=== PATIENT | female | born 2000 | race African-American/Black ===

== ENCOUNTER 2020-10-09 19:55 | Inpatient (IN) | payer OTHER, SELFPAY ==
[2020-10-09 20:22] VITALS: BMI 36.9
[2020-10-09] MEDS: risperiDONE 1 MG TABLET PO (23:16)
[2020-10-09] MEDS: traZODone HCL 50 MG TABLET PO (23:16)
[2020-10-09 23:24] LABS: Blood Urea Nitrogen 9 mg/dL (9-16); Creatinine Clr Calc Pharmacy 144.6; Estimated Glomerular Filt Rate > 60
[2020-10-10 06:00] VITALS: BP 118/58; PULSE 102; RESP 18; TEMP 37.2; O2SAT 94
[2020-10-10 08:29] LABS: Glucose, Whole Blood 113 mg/dL (60-115)
--- NOTE | 2020-10-10 08:58 | P.HPPS_ITS ---
HPI Chief Complaint: Unspecified Schizophrenia Sources of Information: patient interviewed, chart reviewed and crisis/core team assessment reviewed HPI Subjective Notes: Ayers Warning, Conditional Voluntary and 3 Day Narrative: Patient is a 20 year old transgender patient female to male who goes by the name of braden and has a history of schizoaffective disorder band PTSD, presenting for depression, SI and auditory hallucinations in the face of being off medications and having relational strife with her grandmother. Pt did not specify preference for pronouns but wants to be called Germán. Patient was transferred from [facility] after being treated there for a kidney stone which was without complications and has fully resolved. Patient reports that she was taking effective medications for mood and psychotic symptoms back in high school; when she was 18 she moved to [place] to live with her paternal grandmother and though she was taking medications there, does not remember which ones. Things did not go well in [place] and she moved back to [place] at 19. It was during the pandemic and it was hard to find a prescriber so she was off medications. For the past several months she has endorsed bothersome auditory hallucinations that say mean things, depression and anxiety; She reports chronic intermittent SI but says it is passive and without intent or plans. She is close to her maternal grandmother here in [place] however a few weeks ago her grandmother finally came to the realization that patient's transgender status is not a phase but permanent and made un-accepting comments to the patient. This was upsetting and significantly increased patients depressed feelings and subsequently suicidal ideations which remained passive but started to include some vague plans; She denies ever having any intention. Patient has undergone other stressors this past month which have exacerbated her symptoms and include moving into a new place by herself. patient had flank pain and was diagnosed and treated for kidney stone during which time she expressed she was having symptoms and so patient was started on Risperdal .5 twice today and transferred to [facility]. Patient currently endorses depression and has SI though she remains without intention or plans. Auditory hallucinations are still bothersome. She is fine with continuing on Risperdal if it is helpful as she cannot remember what meds she used to be on and [facility] does not have data going back far enough for ad copy writer to discover. Patient denies any drug use. Patient endorses history of trauma though she did not elaborate and reports frequent nightmares two to three times a week, flashbacks and hyper vigilance. Patient denies sexual activity and would like to get on hormone treatment to stop her. at [facility], pt was started on Metformin given HBA1c >6 Past Psychiatric History: treated for psychotic symptoms and mood since [facility] Medical Evaluation Reviewed: Hospitalist Roxie Pending [facility] Family History: no contact with bio father Social History: graduated [employer].S lives in own apartment close to maternal grandmother here in [place] not close to mother or siblings though they too live in [place] Substance History: denies Trauma History: +; pt did not elaborate Diagnostics Vital Signs (24Hr): Vital Signs - 24 hr 10/10/20 06:00 Temperature 99 F Pulse Rate 102 H Respiratory Rate 18 Blood Pressure 118/58 L Pulse Oximetry 94 Body Mass Index 36.9 Labs Results: 10/10/20 15:32 10/09/20 22:44 Labs: Laboratory Results - last 48 hr 10/09/20 10/10/20 22:44 08:25 BUN 9 Creatinine 0.73 Estim Creat Clear Calc 144.6 Estimated GFR > 60 POC Glucose 113 Meds/Allergies Meds Home Medications Acetaminophen (Acetaminophen 325 Mg Tablet) 650 mg PO Q6H PRN PRN Reason: Headache/Pain Mild Scale (1-3) Al Hydroxide/Mg Hydroxide (Magnesium Hydrox/Alum Hydrox 30 Ml Oral.Susp) 30 ml PO Q6H PRN PRN Reason: Heartburn/Nausea Albuterol Sulfate (Albuterol Sulfate 90 Mcg 8 Gm Inhaler) 2 puff INHALE RQ4H PRN PRN Reason: sob Albuterol Sulfate (Albuterol Sulfate (0.083%) 2.5 Mg/3 Ml Vial.Neb) 3 mg INHALE RQ4H PRN PRN Reason: sob/wheezing Hydroxyzine HCl (Hydroxyzine Hcl 25 Mg Tablet) 25 mg PO TID PRN PRN Reason: Anxiety Last Admin: 10/12/20 20:07 Dose: 25 mg Documented by: Magnesium Hydroxide (Milk Of Magnesia 30 Ml Oral.Susp) 30 ml PO DAILY PRN PRN Reason: Constipation Metformin HCl (Metformin Hcl 850 Mg Tablet) 850 mg PO DAILY@0800 FRANCISCO Last Admin: 10/13/20 08:54 Dose: 850 mg Documented by: Nicotine Polacrilex (Nicotine Polacrilex 2 Mg Gum) 4 mg BUCCAL Q2H PRN PRN Reason: Nicotine Cravings Risperidone (Risperidone 1 Mg Tablet) 1 mg PO DAILY [facility] Last Admin: 10/13/20 08:54 Dose: 1 mg Documented by: Risperidone (Risperidone 2 Mg Tablet) 2 mg PO BEDTIME FRANCISCO Last Admin: 10/12/20 20:07 Dose: 2 mg Documented by: Trazodone HCl (Trazodone Hcl 50 Mg Tablet) 50 mg PO BEDTIME PRN PRN Reason: Insomnia Last Admin: 10/12/20 22:32 Dose: 50 mg Documented by: Allergies Allergies Allergy/AdvReac Type Severity Reaction Status Date / Time No Known Allergies Allergy Verified 10/09/20 21:16 Mental Status Exam Mental Status Exam Narrative: Pt is alert and oriented; behavior is cooperative but struggles with reticence; patient is not in distress; dressed in hospital cloths with adequate hygiene; mood is described as depressed and affect congruent; eye contact appropriate; Initially Speech is very quiet and limited to as few words as possible however as patient became more comfortable, speech became normal rate, volume and prosody and not pressured; no psychomotor agitation/retardation present; thought process is organized, linear, logical and goal directed. Thought content is on getting treatment and otherwise pertinent to relevant topics and without any delusional content or paranoid ideations; pt has AH but has insight to know it's due to psychiatric illness and not real; no grandiosity; denies HI; SI is intermittent but passive. Patients insight and judgment appear intact. Assessment & Plan Assessment & Plan (1) Schizoaffective disorder, depressive type: Status: Acute Code(s): F25.1 - Schizoaffective disorder, depressive type (2) Chronic post-traumatic stress disorder (PTSD): Status: Acute Code(s): F43.12 - Post-traumatic stress disorder, chronic Assessment and Plan: impression Patient is a 20 year old transgender patient female to male who goes by the name of braden and has a history of schizoaffective disorder band PTSD, presenting for depression, SI and auditory hallucinations in the face of being off medications and having relational strife with her grandmother. Pt did not specify preference for pronouns but wants to be called Germán. Patient was t ransferred from [facility] after being treated there for a kidney stone which was without complications and has fully resolved. Pt currently with depression, passive SI and AH and wants to continue tx with Risperdal and agrees to increasing dose; ad copy writer reviewed risks/side-effects of this medication including galactorhea; pt understands risks/side-effect profile and agrees to continue with meds. Plan: increased Risperdal to 1mg BID (up from 0.5 mg bid started a week ago) Pt on CV q15 min checks recently treated for kidney stone which is now resolved; discussed case with covering attending at [facility] who says they will make appointments for follow up with urology Reason for continued inpatient stay Substantial Risk for: harm to self and med/psych decompensation
[2020-10-10] MEDS: risperiDONE 1 MG TABLET PO ×2 (09:17→20:32)
[2020-10-10] MEDS: metFORMIN HCl 850 MG TABLET PO (09:17)
[2020-10-10 15:40] LABS: Basophils Percent Auto 0.3 % (0-2); Eosinophils Absolute Auto 0.2 X10*3/uL (0.0-0.4); Eosinophils Percent Auto 1.3 % (0-4); Hematocrit 37.5 % (37-47); Hemoglobin 11.5 g/dl (12.0-16.0); Imm Gran Abs Auto 0.06 X10*3/uL (0.00-0.03); Imm Gran Pct Auto 0.4 % (0.0-0.4); Lymphocytes Absolute Auto 2.5 X10*3/uL (1.2-4.9); Lymphocytes Percent Auto 18.5 % (20-40); Mean Corpuscular HGB Conc 30.7 g/dl (31.0-35.0); Mean Corpuscular Hemoglobin 25.9 pg (27.0-33.0); Mean Corpuscular Volume 84.5 fL (80-98); Mean Platelet Volume 9.9 fL (9.4-12.3); Monocytes Absolute Auto 0.4 X10*3/uL (0.1-1.2); Neutrophils Absolute Auto 10.4 X10*3/uL (2.0-8.3); Neutrophils Percent Auto 76.5 % (45-73); Platelet Count 472 X10*3/uL (160-400); Red Blood Count 4.44 X10*6/uL (4.20-5.50); Red Cell Distribution Width 13.3 % (11.0-16.0); White Blood Count 13.5 X10*3/uL (4.8-10.8)
[2020-10-10 17:20] VITALS: BP 141/85; PULSE 100; TEMP 36.3; O2SAT 99
[2020-10-10 17:54] LABS: Glucose, Whole Blood 103 mg/dL (60-115)
[2020-10-10] MEDS: traZODone HCL 50 MG TABLET PO (22:28)
[2020-10-10] MEDS: hydrOXYzine HCL 25 MG TABLET PO (22:28)
[2020-10-11 06:30] VITALS: BP 127/67; PULSE 108; RESP 16; TEMP 36.6; O2SAT 96
[2020-10-11 06:42] LABS: Glucose, Whole Blood 132 mg/dL (60-115)
[2020-10-11] MEDS: metFORMIN HCl 850 MG TABLET PO (08:05)
[2020-10-11] MEDS: risperiDONE 1 MG TABLET PO ×2 (08:05→20:20)
--- NOTE | 2020-10-11 13:06 | PC.NURSE ---
pt signed 3 day up wed
[2020-10-11 17:15] VITALS: BP 133/72; PULSE 101; TEMP 36.5; O2SAT 99
--- NOTE | 2020-10-11 17:36 | HO.PSYCHPN ---
Subjective Subjective Date of Service: 10/12/20 Reason For Visit: Unspecified Schizophrenia Interim History: pt reports that she's feeling better. she says that her depression is still a 7/10 (down from 9/10 prior to admission) but her SI and AH are now at 5/10 (down from 8/10). and she's feeling more herself. Of note, pt is more spontaneously talkative and has brighter affect. She denies any med side-effects. of note, pt out in milue more. Medication Compliance: Yes Side effects from medications: No Mental Status Exam Mental Status Exam Narrative: Pt is alert and oriented; behavior is cooperative, friendly and calm; patient is not in distress; dressed in casual attire with adequate hygiene; mood is described as better and affect congruent; eye contact appropriate; Speech is normal rate, volume and prosody and not pressured; no psychomotor agitation/retardation present; thought process is organized, linear, logical and goal directed. Thought content is on treatment and pertinent to relevant topics; patient has AH but they are less intense; passive SI remains intermittent, but is w/out plans or intent; denies any HI. Patients insight and judgment appear intact. Diagnostics Vital Signs (24Hr): Vital Signs - 24 hr 10/11/20 06:30 Temperature 97.8 F Pulse Rate 108 H Respiratory Rate 16 Blood Pressure 127/67 Pulse Oximetry 96 Body Mass Index 36.9 Labs Results: 10/10/20 15:32 10/09/20 22:44 Labs: Laboratory Results - last 48 hr 10/09/20 10/10/20 10/10/20 22:44 08:25 15:32 WBC 13.5 H RBC 4.44 Hgb 11.5 L Hct 37.5 MCV 84.5 MCH 25.9 L MCHC 30.7 L RDW 13.3 Plt Count 472 H MPV 9.9 Immature Gran % (Auto) 0.4 Neut % (Auto) 76.5 H Lymph % (Auto) 18.5 L [place] % (Auto) 3.0 Eos % (Auto) 1.3 Baso % (Auto) 0.3 Lymph # (Auto) 2.5 [place] # (Auto) 0.4 Eos # (Auto) 0.2 Baso # (Auto) 0.0 Abs Immat Gran (auto) 0.06 H Absolute Neuts (auto) 10.4 H Absolute Nucleated RBC 0.000 Nucleated RBC % (auto) 0.0 BUN 9 Creatinine 0.73 Estim Creat Clear Calc 144.6 Estimated GFR > 60 POC Glucose 113 10/10/20 10/11/20 17:50 06:28 WBC RBC Hgb Hct MCV MCH MCHC RDW Plt Count MPV Immature Gran % (Auto) Neut % (Auto) Lymph % (Auto) [place] % (Auto) Eos % (Auto) Baso % (Auto) Lymph # (Auto) [place] # (Auto) Eos # (Auto) Baso # (Auto) Abs Immat Gran (auto) Absolute Neuts (auto) Absolute Nucleated RBC Nucleated RBC % (auto) BUN Creatinine Estim Creat Clear Calc Estimated GFR POC Glucose 103 132 H Medications Medications Current Medications Generic Name Dose Route Start Last Admin Trade Name Freq PRN Reason Stop Dose Admin Acetaminophen 650 mg 10/09/20 22:22 Acetaminophen 325 Mg Tablet PO Q6H PRN Headache/Pain Mild Scale (1-3) Al Hydroxide/Mg Hydroxide 30 ml 10/09/20 22:22 Magnesium Hydrox/Alum Hydrox 30 Ml Oral.Susp PO Q6H PRN Heartburn/Nausea Albuterol Sulfate 2 puff 10/09/20 22:22 Albuterol Sulfate 90 Mcg 8 Gm Inhaler INHALE RQ4H PRN sob Albuterol Sulfate 3 mg 10/09/20 22:22 Albuterol Sulfate (0.083%) 2.5 Mg/3 Ml Vial.Neb INHALE RQ4H PRN sob/wheezing Diphenhydramine HCl 50 mg 10/09/20 22:22 Diphenhydramine Hcl 25 Mg Tablet PO Q4H PRN agitation Haloperidol 5 mg 10/09/20 22:22 Haloperidol 5 Mg Tablet PO Q4H PRN agitation Hydroxyzine HCl 25 mg 10/09/20 23:00 10/10/20 22:28 Hydroxyzine Hcl 25 Mg Tablet PO 25 mg TID PRN Administration Anxiety Lorazepam 2 mg 10/09/20 22:22 Lorazepam 1 Mg Tablet PO Q4H PRN agitation Magnesium Hydroxide 30 ml 10/09/20 22:22 Milk Of Magnesia 30 Ml Oral.Susp PO DAILY PRN Constipation Metformin HCl 850 mg 10/10/20 08:00 10/11/20 08:05 Metformin Hcl 850 Mg Tablet PO 850 mg DAILY@0800 FRANCISCO Administration Nicotine Polacrilex 4 mg 10/09/20 22:22 Nicotine Polacrilex 2 Mg Gum BUCCAL Q2H PRN Nicotine Cravings Risperidone 1 mg 10/09/20 23:00 10/11/20 08:05 Risperidone 1 Mg Tablet PO 1 mg BID FRANCISCO Administration Trazodone HCl 50 mg 10/09/20 22:22 10/10/20 22:28 Trazodone Hcl 50 Mg Tablet PO 50 mg BEDTIME PRN Administration Insomnia Allergies Allergies Allergy/AdvReac Type Severity Reaction Status Date / Time No Known Allergies Allergy Verified 10/09/20 21:16 Assessment & Plan Assessment & Plan (1) Schizoaffective disorder, depressive type: Status: Acute Code(s): F25.1 - Schizoaffective disorder, depressive type (2) Chronic post-traumatic stress disorder (PTSD): Status: Acute Code(s): F43.12 - Post-traumatic stress disorder, chronic Impression: hx of schizophrenia increased risperdal dose on admission to good effect and pt's psychotic and depressive symptoms improving PLAN: Pt on CV continue Risperdal to 1mg BID (up from 0.5mg BID which was started last week) Greater than 50% of the session was spent on counseling and/or coordination of care Reason for contiued inpatient stay Substantial Risk for: rapid decompensation
[2020-10-11] MEDS: traZODone HCL 50 MG TABLET PO (20:20)
[2020-10-12 06:00] VITALS: BP 111/64; PULSE 102; RESP 18; TEMP 36.8; O2SAT 97
[2020-10-12 06:58] LABS: Glucose, Whole Blood 141 mg/dL (60-115)
[2020-10-12] MEDS: metFORMIN HCl 850 MG TABLET PO (08:50)
[2020-10-12] MEDS: risperiDONE 1 MG TABLET PO (08:50)
--- NOTE | 2020-10-12 15:26 | P.PNPSI_ITS ---
Subjective Subjective Date of Service: 10/12/20 Reason For Visit: Unspecified Schizophrenia Subjective Notes: 3 Day Interim History: Patient reports she is doing much better and feels ready to leave. She says she feels back to her normal self and that she is ?good... Ready to get out of here. ?She is patient says auditory hallucinations are way down and though present she is able to ignore. She says SI has fully resolved and so has depression. Patient's grandmother visited and although they did not fully reconcile, patient feels that they're getting there. ? She would like to go up 1 more mg 1 Risperdal to see if voices can be completely resolved. Denies any medication side effects Patient said she placed a 3 day notice anticipating she'd be back to her normal self Medication Compliance: Yes Side effects from medications: No Mental Status Exam Mental Status Exam Narrative: Pt is alert and oriented; behavior is cooperative, friendly and calm; patient is not in distress; dressed in casual attire with adequate hygiene; mood is described as good...ready to get out of here and affect congruent; eye contact appropriate; Speech is normal rate, volume and prosody and not pressured; no psychomotor agitation/retardation present; thought process is organized, linear, logical and goal directed. Thought content is on treatment and pertinent to relevant topics; patient has AH but they are minimal and able to be ignored; Denies any SI or HI. Patients insight and judgment appear intact. Diagnostics Vital Signs (24Hr): Vital Signs - 24 hr 10/11/20 17:15 10/12/20 06:00 Temperature 97.7 F 98.3 F Pulse Rate 101 H 102 H Respiratory Rate 18 Blood Pressure 133/72 111/64 Pulse Oximetry 99 97 Body Mass Index 36.9 Labs Results: 10/10/20 15:32 10/09/20 22:44 Labs: Laboratory Results - last 48 hr 10/10/20 10/10/20 10/11/20 15:32 17:50 06:28 WBC 13.5 H RBC 4.44 Hgb 11.5 L Hct 37.5 MCV 84.5 MCH 25.9 L MCHC 30.7 L RDW 13.3 Plt Count 472 H MPV 9.9 Immature Gran % (Auto) 0.4 Neut % (Auto) 76.5 H Lymph % (Auto) 18.5 L [place] % (Auto) 3.0 Eos % (Auto) 1.3 Baso % (Auto) 0.3 Lymph # (Auto) 2.5 [place] # (Auto) 0.4 Eos # (Auto) 0.2 Baso # (Auto) 0.0 Abs Immat Gran (auto) 0.06 H Absolute Neuts (auto) 10.4 H Absolute Nucleated RBC 0.000 Nucleated RBC % (auto) 0.0 POC Glucose 103 132 H 10/12/20 06:54 WBC RBC Hgb Hct MCV MCH MCHC RDW Plt Count MPV Immature Gran % (Auto) Neut % (Auto) Lymph % (Auto) [place] % (Auto) Eos % (Auto) Baso % (Auto) Lymph # (Auto) [place] # (Auto) Eos # (Auto) Baso # (Auto) Abs Immat Gran (auto) Absolute Neuts (auto) Absolute Nucleated RBC Nucleated RBC % (auto) POC Glucose 141 H Medications Medications Current Medications Generic Name Dose Route Start Last Admin Trade Name Freq PRN Reason Stop Dose Admin Acetaminophen 650 mg 10/09/20 22:22 Acetaminophen 325 Mg Tablet PO Q6H PRN Headache/Pain Mild Scale (1-3) Al Hydroxide/Mg Hydroxide 30 ml 10/09/20 22:22 Magnesium Hydrox/Alum Hydrox 30 Ml Oral.Susp PO Q6H PRN Heartburn/Nausea Albuterol Sulfate 2 puff 10/09/20 22:22 Albuterol Sulfate 90 Mcg 8 Gm Inhaler INHALE RQ4H PRN sob Albuterol Sulfate 3 mg 10/09/20 22:22 Albuterol Sulfate (0.083%) 2.5 Mg/3 Ml Vial.Neb INHALE RQ4H PRN sob/wheezing Diphenhydramine HCl 50 mg 10/09/20 22:22 Diphenhydramine Hcl 25 Mg Tablet PO Q4H PRN agitation Haloperidol 5 mg 10/09/20 22:22 Haloperidol 5 Mg Tablet PO Q4H PRN agitation Hydroxyzine HCl 25 mg 10/09/20 23:00 10/10/20 22:28 Hydroxyzine Hcl 25 Mg Tablet PO 25 mg TID PRN Administration Anxiety Lorazepam 2 mg 10/09/20 22:22 Lorazepam 1 Mg Tablet PO Q4H PRN agitation Magnesium Hydroxide 30 ml 10/09/20 22:22 Milk Of Magnesia 30 Ml Oral.Susp PO DAILY PRN Constipation Metformin HCl 850 mg 10/10/20 08:00 10/12/20 08:50 Metformin Hcl 850 Mg Tablet PO 850 mg DAILY@0800 FRANCISCO Administration Nicotine Polacrilex 4 mg 10/09/20 22:22 Nicotine Polacrilex 2 Mg Gum BUCCAL Q2H PRN Nicotine Cravings Risperidone 1 mg 10/09/20 23:00 10/12/20 08:50 Risperidone 1 Mg Tablet PO 1 mg BID FRANCISCO Administration Trazodone HCl 50 mg 10/09/20 22:22 10/11/20 20:20 Trazodone Hcl 50 Mg Tablet PO 50 mg BEDTIME PRN Administration Insomnia Allergies Allergies Allergy/AdvReac Type Severity Reaction Status Date / Time No Known Allergies Allergy Verified 10/09/20 21:16 Assessment & Plan Assessment & Plan (1) Schizoaffective disorder, depressive type: Status: Acute Code(s): F25.1 - Schizoaffective disorder, depressive type (2) Chronic post-traumatic stress disorder (PTSD): Status: Acute Code(s): F43.12 - Post-traumatic stress disorder, chronic Impression: hx of schizoaffective disorder, depressed type Diagnosis clarified: Patient has periods of auditory hallucinations even when depression is absent; otherwise has intermittent depressive episodes; denies history of manic episodes. Patient endorses history of trauma with nightmares 2-3 times per week, flashbacks to 3 times per week and hypervigilance. increased risperdal dose on admission to good effect and pt's psychotic and depressive symptoms improving Patient has been stabilizing on increased dose. However auditory hallucinations remain. Patient has recent history of suicidal ideation which has finally resolved. That said, patient is in a newly recovered state and with sports book writer is increasing Risperdal dose, it is sports book writer's opinion that patient should remain on unit for another day or so to demonstrate consistent stability and to make sure that increased Risperdal dose is tolerated PLAN: signed 3 day due on 10/13/20 increase Risperdal to 1mg in am and 2mg qhs for continued AH (up from 0.5mg BID which was started last week) Greater than 50% of the session was spent on counseling and/or coordination of care Reason for contiued inpatient stay Substantial Risk for: med/psych decompensation
[2020-10-12 16:58] LABS: Glucose, Whole Blood 125 mg/dL (60-115)
[2020-10-12] MEDS: hydrOXYzine HCL 25 MG TABLET PO (20:07)
[2020-10-12] MEDS: traZODone HCL 50 MG TABLET PO ×2 (20:07→22:32)
[2020-10-12] MEDS: risperiDONE 2 MG TABLET PO (20:07)
[2020-10-12 21:55] VITALS: BP 139/62; PULSE 120
[2020-10-12 23:31] VITALS: BP 140/67; PULSE 120
[2020-10-13 06:27] LABS: Glucose, Whole Blood 131 mg/dL (60-115)
[2020-10-13] MEDS: risperiDONE 1 MG TABLET PO (08:54)
[2020-10-13] MEDS: metFORMIN HCl 850 MG TABLET PO (08:54)
[2020-10-13 09:34] VITALS: BP 129/65; PULSE 120; RESP 20; TEMP 35.5; O2SAT 98
--- NOTE | 2020-10-13 16:01 | HO.PSYCHPN ---
Subjective Subjective Date of Service: 10/13/20 Reason For Visit: Unspecified Schizophrenia Interim History: pt reports she is planning to discharge tomorrow. she reports that the increase in risperidone dose yesterday has further improved the AH, but yet they persist. she declines any change in dosing today, however, liking where she has arrived. no other complaints or requests. Mental Status Exam Mental Status Exam Narrative: appropriately groomed, no PMA/PMR, cooperative. speech soft and decr in amount, incr latency. thoughts linear and logical without psychotic content. affect constricted, hypo-intense, non-labile. mood not assessed. improved AH. no VH, SI/HI expressed. Diagnostics Vital Signs (24Hr): Vital Signs - 24 hr 10/12/20 21:55 10/12/20 23:31 10/13/20 09:34 Temperature 96 F L Pulse Rate 120 H 120 H 120 H Respiratory Rate 20 Blood Pressure 139/62 140/67 H 129/65 Pulse Oximetry 98 Body Mass Index 36.9 Labs Results: 10/10/20 15:32 10/09/20 22:44 Labs: Laboratory Results - last 48 hr 10/12/20 10/12/20 10/13/20 06:54 16:54 06:22 POC Glucose 141 H 125 H 131 H Medications Medications Current Medications Generic Name Dose Route Start Last Admin Trade Name Ritoq PRN Reason Stop Dose Admin Acetaminophen 650 mg 10/09/20 22:22 Acetaminophen 325 Mg Tablet PO Q6H PRN Headache/Pain Mild Scale (1-3) Al Hydroxide/Mg Hydroxide 30 ml 10/09/20 22:22 Magnesium Hydrox/Alum Hydrox 30 Ml Oral.Susp PO Q6H PRN Heartburn/Nausea Albuterol Sulfate 2 puff 10/09/20 22:22 Albuterol Sulfate 90 Mcg 8 Gm Inhaler INHALE RQ4H PRN sob Albuterol Sulfate 3 mg 10/09/20 22:22 Albuterol Sulfate (0.083%) 2.5 Mg/3 Ml Vial.Neb INHALE RQ4H PRN sob/wheezing Hydroxyzine HCl 25 mg 10/09/20 23:00 10/12/20 20:07 Hydroxyzine Hcl 25 Mg Tablet PO 25 mg TID PRN Administration Anxiety Magnesium Hydroxide 30 ml 10/09/20 22:22 Milk Of Magnesia 30 Ml Oral.Susp PO DAILY PRN Constipation Metformin HCl 850 mg 10/10/20 08:00 10/13/20 08:54 Metformin Hcl 850 Mg Tablet PO 850 mg DAILY@0800 FRANCISCO Administration Nicotine Polacrilex 4 mg 10/09/20 22:22 Nicotine Polacrilex 2 Mg Gum BUCCAL Q2H PRN Nicotine Cravings Risperidone 1 mg 10/13/20 09:00 10/13/20 08:54 Risperidone 1 Mg Tablet PO 1 mg DAILY FRANCISCO Administration Risperidone 2 mg 10/12/20 21:00 10/12/20 20:07 Risperidone 2 Mg Tablet PO 2 mg BEDTIME FRANCISCO Administration Trazodone HCl 50 mg 10/09/20 22:22 10/12/20 22:32 Trazodone Hcl 50 Mg Tablet PO 50 mg BEDTIME PRN Administration Insomnia Allergies Allergies Allergy/AdvReac Type Severity Reaction Status Date / Time No Known Allergies Allergy Verified 10/09/20 21:16 Assessment & Plan Assessment & Plan (1) Schizoaffective disorder, depressive type: Status: Acute Code(s): F25.1 - Schizoaffective disorder, depressive type (2) Chronic post-traumatic stress disorder (PTSD): Status: Acute Code(s): F43.12 - Post-traumatic stress disorder, chronic Assessment and Plan: impression Patient is a 20 year old transgender patient female to male who goes by the name of braden and has a history of schizoaffective disorder and PTSD, presenting for depression, SI and auditory hallucinations in the face of being off medications and having relational strife with her grandmother. Pt did not specify preference for pronouns but wants to be called [facility]. Patient was transferred from [facility] after being treated there for a kidney stone which was without complications and has fully resolved. Pt currently with depression, passive SI and AH and wants to continue tx with Risperdal and agrees to increasing dose; senior grant writer reviewed risks/side-effects of this medication including galactorhea; pt understands risks/side-effect profile and agrees to continue with meds. Plan: increased Risperdal to 1mg BID (up from 0.5 mg bid started a week ago) Pt on CV q15 min checks recently treated for kidney stone which is now resolved; discussed case with covering attending at [facility] who says they will make appointments for follow up with urology content with current regimen, planning for discharge tomorrow. Greater than 50% of the session was spent on counseling and/or coordination of care Reason for contiued inpatient stay Substantial Risk for: med/psych decompensation
[2020-10-13 16:40] VITALS: BP 120/63; PULSE 119; TEMP 36.1
[2020-10-13 16:47] LABS: Glucose, Whole Blood 173 mg/dL (60-115)
[2020-10-13 20:44] VITALS: BP 132/77; PULSE 113
[2020-10-13] MEDS: hydrOXYzine HCL 25 MG TABLET PO (20:44)
[2020-10-13] MEDS: risperiDONE 2 MG TABLET PO (20:44)
[2020-10-13] MEDS: traZODone HCL 50 MG TABLET PO (20:44)
[2020-10-13] MEDS: cloNIDine HCL 0.1 MG TABLET 0.05 MG PO (20:44)
[2020-10-13 23:45] VITALS: BP 128/60; PULSE 107
[2020-10-14 06:00] VITALS: BP 114/63; PULSE 88; RESP 16; TEMP 36.2; O2SAT 100
[2020-10-14 06:06] LABS: Glucose, Whole Blood 154 mg/dL (60-115)
[2020-10-14] MEDS: risperiDONE 1 MG TABLET PO (08:36)
[2020-10-14] MEDS: metFORMIN HCl 850 MG TABLET PO (08:36)
--- NOTE | 2020-10-14 11:38 | PM.PSYDC ---
DS: Providers Provider Date of Service: 10/14/20 Date of admission: 10/09/20 19:55 Date of discharge: 10/14/20 Primary care physician: Unknown Physician Admitting clinician: Pawel Rubalcava Attending physician on discharge: Pawel Rubalcava DS: Diagnosis Discharge Diagnosis (1) Schizoaffective disorder, depressive type: Status: Acute (2) Chronic post-traumatic stress disorder (PTSD): Status: Acute Discharge Plan Discharge Patient Disposition: Home, Self-Care Discharge Diagnosis: Schizoaffective disorder, depressed type Referrals: Stacey (Therapist) [Other] - 10/15/20 1:00 pm (Telehealth appointment) Nury Foote (psychiatrist) [Other] - 10/19/20 1:00 pm (Telehealth appointment) Hasmukh Merchant MD [Physician] - 10/19/20 11:00 am (Appt. changed to Monday10/19/20 @11am with (in person). Due to her already having an appt. on the 20 of October.) Physician,Unknown [Primary Care Provider] - 1 Week Discharge Medications: New albuterol sulfate 2.5 mg /3 mL (0.083 %) Solution For Nebulization 3 mg inhalation RQ4H PRN (Reason: sob/wheezing) 30 Days Qty: 15 RF: 0 trazodone 50 mg Tablet 50 mg PO BEDTIME PRN (Reason: Insomnia) 30 Days Qty: 30 RF: 0 metformin 850 mg Tablet 850 mg PO DAILY@0800 30 Days Qty: 30 RF: 0 risperidone 2 mg Tablet 2 mg PO BEDTIME 30 Days Qty: 30 RF: 0 albuterol sulfate [Ventolin HFA] 90 mcg/actuation Hfa Aerosol Inhaler 2 puff inhalation RQ4H PRN (Reason: sob) 30 Days Qty: 1 RF: 0 risperidone 1 mg Tablet 1 mg PO DAILY 30 Days Qty: 30 RF: 0 hydroxyzine HCl 25 mg Tablet 25 mg PO TID PRN (Reason: Anxiety) 30 Days Qty: 60 RF: 0 Discharge Orders: Discharge Order (Routine); Ordered 10/14/20 Ordered By: Pawel Rubalcava Diet: diabetic diet Activity on Discharge: As tolerated Stand Alone Forms: Patient Portal Discharge page, Community Support Care Plan Goals: Maintain mood and safe behaviors Take medications as prescribed Practice coping skills Continue with outpatient providers and reach out to them as needed Health Concerns: Mood instability and behaviors Depression Elevated HBA1C and Diabetes Plan of Treatment: Follow up with your PCP and psychiatric provider regarding above concerns Take medications as prescribed Assessment: Risk assessment at time of discharge: Patient has been observed closely by nursing and unit staff throughout admission; patient has not engaged in any behaviors that suggest dangerousness to self or others and has demonstrated appropriate behaviors and impulse control. Patient was interviewed prior to discharge and found to be fully oriented and without any SI or HI. Patient has insight and demonstrates good judgment in terms of wanting to pursue treatment. Patient is not in imminent risk of harm to self or others and has a safety plan that includes presenting to the closest ER or calling 911 if feeling unsafe. Mental Status Exam Mental Status Exam Narrative: Pt is alert and oriented; behavior is cooperative, friendly and calm; patient is not in distress; dressed in casual attire with adequate hygiene; mood is described as good...almost good and affect bright, congruent; eye contact appropriate; Speech is normal rate, volume and prosody and not pressured; no psychomotor agitation/retardation present; thought process is organized, linear, logical and goal directed. Thought content is on treatment, discharge and pertinent to relevant topics; patient has AH but they are minimal and able to be ignored; Denies any SI or HI. Patients insight and judgment appear intact. Data Data Completed and Pending Completed studies during hospitalization [Text1]: 10/09/20 10/10/20 10/10/20 22:44 08:25 15:32 WBC 13.5 H RBC 4.44 Hgb 11.5 L Hct 37.5 MCV 84.5 MCH 25.9 L MCHC 30.7 L RDW 13.3 Plt Count 472 H MPV 9.9 Immature Gran % (Auto) 0.4 Neut % (Auto) 76.5 H Lymph % (Auto) 18.5 L Sharkey % (Auto) 3.0 Eos % (Auto) 1.3 Baso % (Auto) 0.3 Lymph # (Auto) 2.5 Sharkey # (Auto) 0.4 Eos # (Auto) 0.2 Baso # (Auto) 0.0 Abs Immat Gran (auto) 0.06 H Absolute Neuts (auto) 10.4 H Absolute Nucleated RBC 0.000 Nucleated RBC % (auto) 0.0 BUN 9 Creatinine 0.73 Estim Creat Clear Calc 144.6 Estimated GFR > 60 POC Glucose 113 10/10/20 10/11/20 10/12/20 17:50 06:28 06:54 WBC RBC Hgb Hct MCV MCH MCHC RDW Plt Count MPV Immature Gran % (Auto) Neut % (Auto) Lymph % (Auto) Sharkey % (Auto) Eos % (Auto) Baso % (Auto) Lymph # (Auto) Sharkey # (Auto) Eos # (Auto) Baso # (Auto) Abs Immat Gran (auto) Absolute Neuts (auto) Absolute Nucleated RBC Nucleated RBC % (auto) BUN Creatinine Estim Creat Clear Calc Estimated GFR POC Glucose 103 132 H 141 H 10/12/20 10/13/20 10/13/20 16:54 06:22 16:40 WBC RBC Hgb Hct MCV MCH MCHC RDW Plt Count MPV Immature Gran % (Auto) Neut % (Auto) Lymph % (Auto) Sharkey % (Auto) Eos % (Auto) Baso % (Auto) Lymph # (Auto) Sharkey # (Auto) Eos # (Auto) Baso # (Auto) Abs Immat Gran (auto) Absolute Neuts (auto) Absolute Nucleated RBC Nucleated RBC % (auto) BUN Creatinine Estim Creat Clear Calc Estimated GFR POC Glucose 125 H 131 H 173 H 10/14/20 05:58 WBC RBC Hgb Hct MCV MCH MCHC RDW Plt Count MPV Immature Gran % (Auto) Neut % (Auto) Lymph % (Auto) Sharkey % (Auto) Eos % (Auto) Baso % (Auto) Lymph # (Auto) Sharkey # (Auto) Eos # (Auto) Baso # (Auto) Abs Immat Gran (auto) Absolute Neuts (auto) Absolute Nucleated RBC Nucleated RBC % (auto) BUN Creatinine Estim Creat Clear Calc Estimated GFR POC Glucose 154 H DS: Summary Hospital Course Hospital Course: Patient is a 20 year old transgender patient female to male who goes by the name of braden and has a history of schizoaffective disorder and PTSD, presenting for depression, SI and auditory hallucinations in the face of being off medications and having relational strife with her grandmother. Patient was transferred from [facility] after being treated there for a kidney stone which was without complications and has fully resolved. She was admitted on a CV. On admission, pt reported depression with passive SI and AH and agreed to continue tx with Risperdal and to increasing dose. Soon, patient reported that depression, SI and auditory hallucinations were decreasing. She became more outwardly social and with brighter affect. Patient agreed to increased Risperdal dose for continued auditory hallucinations and denied any side effects. Patient placed a 3 day Saint she felt good and was ready to get out of here. Patient continued to deny any suicidal or homicidal ideation and demonstrated appropriate behaviors and impulse control on the unit. Patient reconciled with her grandmother and was optimistic about the relationship going forward. As discharge approached and on the day of discharge patient reported that all depression had resolved and that she was in a good mood. She denied any SI or HI and reported that auditory hallucinations were very minimal and able to be ignored. The patient also reported that PTSD symptoms had decreased and planned to follow-up with outpatient provider for further treatment. Her affect was noticeably brighter and patient was future focused. Her 3 day notice was due and as she was not in imminent risk for harm to self or others and her request for discharge honored. Fretted Instrument Maker Hand discussed risks/side effects of medication regimen, including but not limited to galachtorhea and TD; patient communicated understanding of benefits, risks and side-effects of medications and wants to continue with regimen. Patient agrees that current doses seem appropriate and denies medication side-effects. Patient agrees to reach out to outpatient provider with any medications concerns. Status at Discharge Cognitive/behavioral status at discharge: Risk assessment at time of discharge: Patient has been observed closely by nursing and unit staff throughout admission; patient has not engaged in any behaviors that suggest dangerousness to self or others and has demonstrated appropriate behaviors and impulse control. Patient was interviewed prior to discharge and found to be fully oriented and without any SI or HI. Patient has insight and demonstrates good judgment in terms of wanting to pursue treatment. Patient is not in imminent risk of harm to self or others and has a safety plan that includes presenting to the closest ER or calling 911 if feeling unsafe. Functional status at discharge: independent ambulation Overall status at discharge: patient is back to baseline Time Spent with Patient Time attestation: Total time spent providing and/or coordinating discharge services: Time spent: Greater than 30 minutes
== END 2020-10-14 13:00 | disposition home or self-care (01) | DRG 750 ==
PROVIDERS: Admitting Provider Psychiatry & Neurology Psychiatry; Visit Provider Psychiatry & Neurology Psychiatry
DX: F25.1 Schizoaffective disorder, depressive type (principal); R45.851 Suicidal ideations; F64.0 Transsexualism; F43.12 Post-traumatic stress disorder, chronic; Z79.899 Other long term (current) drug therapy
CPT/HCPCS: 36415; 82565; 82947; 84520; 85025

== ENCOUNTER 2021-04-21 13:46 | Outpatient (REF) | payer MEDICAID, SELFPAY ==
--- NOTE | ~2021-04-21 | US_ITS ---
EXAMINATION: US PELVIS CLINICAL INFORMATION: Abnormal uterine bleeding COMPARISON: None TECHNIQUE: Ultrasound of the pelvis is performed using both transabdominal and transvaginal transducers along with Doppler. Transvaginal imaging is performed due to inadequate visualization transabdominally. FINDINGS: Uterus: The uterus is anteverted and measures 6 x 3.2 x 4.3 cm. It is anteverted. No myometrial lesion. Probable arcuate morphology. The double wall endometrial thickness is 0.6 mm. The uterus is smooth in contour and has normal myometrial echogenicity. No visible fibroid. Adnexa: Both ovaries are visualized. There is normal color flow to the adnexa. There is no ovarian torsion. There is no pelvic ascites or fluid collection. Both ovaries are normal measuring 14 mL in volume on the right and 7 6 left. US/US pelvic and transvaginal IMPRESSION: Essentially normal exam.
== END 2021-04-21 13:47 | disposition home or self-care (01) ==
LOC: HO.HMGCX 13:46
PROVIDERS: Absent Provider Internal Medicine; PCP Internal Medicine; Visit Provider Family Medicine
DX: N93.9 Abnormal uterine and vaginal bleeding, unspecified (principal)
CPT/HCPCS: 76830; 76856

== ENCOUNTER 2022-12-15 14:09 | Outpatient (REF) | payer MEDICAID, SELFPAY ==
[2022-12-15 17:21] LABS: MANUAL DIFF FLAG NO
[2022-12-15 17:36] LABS: Basophils Percent Auto 0.3 % (0-2); Eosinophils Absolute Auto 0.1 X10*3/uL (0.0-0.4); Eosinophils Percent Auto 0.4 % (0-4); Hematocrit 45.1 % (37.0-47.0); Hemoglobin 13.9 g/dl (12.0-16.0); Imm Gran Abs Auto 0.04 X10*3/uL (0.00-0.03); Imm Gran Pct Auto 0.3 % (0.0-0.4); Lymphocytes Absolute Auto 3.7 X10*3/uL (1.2-4.9); Lymphocytes Percent Auto 28.3 % (20-40); Mean Corpuscular HGB Conc 30.8 g/dl (31.0-35.0); Mean Corpuscular Hemoglobin 26.1 pg (27.0-33.0); Mean Corpuscular Volume 84.6 fL (80.0-98.0); Mean Platelet Volume 10.8 fL (9.4-12.3); Monocytes Absolute Auto 0.7 X10*3/uL (0.1-1.2); Neutrophils Absolute Auto 8.5 x10*3/uL (2.0-8.3); Neutrophils Percent Auto 65.7 % (45-73); Platelet Count 518 X10*3/uL (160-400); Red Blood Count 5.33 X10*6/uL (4.20-5.50); Red Cell Distribution Width 12.6 % (11.0-16.0); White Blood Count 12.9 X10*3/uL (4.8-10.8)
[2022-12-15 17:51] LABS: Alanine Aminotransferase 44 U/L (0-31); Albumin Level 4.6 g/dL (3.5-5.0); Alkaline Phosphatase 111 U/L (39-117); Anion Gap 15 (12-20); Aspartate Amino Transferase 36 U/L (5-31); Bilirubin Direct 0.2 mg/dL (0.0-0.5); Bilirubin Total 0.5 mg/dL (0.0-1.0); Blood Urea Nitrogen 7 mg/dL (9-16); Calcium 10.9 mg/dL (8.4-10.2); Carbon Dioxide 25 mmol/L (22-29); Chloride 103 mmol/L (96-108); Cholesterol 220 mg/dL; Estimated Glomerular Filt Rate > 60; Glucose Random 224 mg/dL (60-115); HDL Cholesterol 45 mg/dL; LDL Cholesterol Calculated 135 mg/dl; Sodium 139 mmol/L (135-145); Total Protein 8.6 g/dL (6.5-8.0); Triglycerides 201 mg/dL
== END 2022-12-15 14:10 | disposition home or self-care (01) ==
LOC: HO.CHCLDS 14:09
PROVIDERS: Visit Provider Internal Medicine
DX: Z00.00 Encounter for general adult medical examination without abnormal findings (principal); E11.65 Type 2 diabetes mellitus with hyperglycemia
CPT/HCPCS: 36415; 80048; 80061; 80076; 85025

== ENCOUNTER 2024-05-30 11:05 | Outpatient (REF) | payer MEDICAID, SELFPAY ==
[2024-05-30 14:01] LABS: MANUAL DIFF FLAG NO
[2024-05-30 14:20] LABS: Basophils Absolute Auto 0.1 X10*3/uL (0.0-0.2); Basophils Percent Auto 0.4 % (0-2); Eosinophils Absolute Auto 0.1 X10*3/uL (0.0-0.4); Eosinophils Percent Auto 0.7 % (0-4); Hematocrit 37.9 % (37.0-47.0); Hemoglobin 11.6 g/dl (12.0-16.0); Imm Gran Abs Auto 0.06 X10*3/uL (0.00-0.03); Imm Gran Pct Auto 0.4 % (0.0-0.4); Lymphocytes Absolute Auto 2.8 X10*3/uL (1.2-4.9); Lymphocytes Percent Auto 19.3 % (20-40); Mean Corpuscular HGB Conc 30.6 g/dl (31.0-35.0); Mean Corpuscular Hemoglobin 24.8 pg (27.0-33.0); Mean Platelet Volume 10.6 fL (9.4-12.3); Monocytes Absolute Auto 0.7 X10*3/uL (0.1-1.2); Neutrophils Absolute Auto 10.9 x10*3/uL (2.0-8.3); Neutrophils Percent Auto 74.2 % (45-73); Platelet Count 540 X10*3/uL (160-400); Red Blood Count 4.68 X10*6/uL (4.20-5.50); Red Cell Distribution Width 13.9 % (11.0-16.0); White Blood Count 14.7 X10*3/uL (4.8-10.8)
[2024-05-30 14:39] LABS: Alanine Aminotransferase 22 U/L (0-31); Albumin Level 4.1 g/dL (3.5-5.0); Alkaline Phosphatase 88 U/L (39-117); Anion Gap 12 (12-20); Aspartate Amino Transferase 25 U/L (5-31); Bilirubin Total 0.3 mg/dL (0.0-1.0); Blood Urea Nitrogen 7 mg/dL (9-16); Calcium 9.8 mg/dL (8.4-10.2); Carbon Dioxide 27 mmol/L (22-29); Chloride 103 mmol/L (96-108); Cholesterol 217 mg/dL (<200); Estimated Glomerular Filt Rate > 60; Glucose Random 173 mg/dL (60-115); HDL Cholesterol 43 mg/dL (>40); LDL Cholesterol Calculated 112 mg/dL (<100); Potassium 4.1 mmol/L (3.3-5.1); Sodium 138 mmol/L (135-145); Total Protein 8.3 g/dL (6.5-8.0); Triglycerides 313 mg/dL (<150)
[2024-05-30 14:53] LABS: TSH reflex Free T4 1.46 uIU/mL (0.32-4.0)
--- OUTSIDE RECORDS SUMMARY | 2024-05-30 14:58 | XMS_ITS | Encounter Summary ---
Author Organization [facility] [employer] Address [address] [place] [address] Care Team Providers Care Farm Crops Teacher Name Role Phone Hasmukh Merchant MD Primary Care Provider [phone] Reason for Visit * Reason Onset Date Comments Nurse Triage 03/11/2024 Encounter Details Date Type Department Care Team (Late st Contact Info) Description 03/11/[address] [facility] [address] [place] [address] Hasmukh Merchant MD [address] [place], [place] [id number] Nurse Triage Social History Tobacco Use Types Packs/Day Years Used Date Smoking Tobacco: Never Comments Unknown Sex and Gender Information Value Date Recorded Sex Assigned at Female 02/28/2022 10:37 AM EDT Legal Sex Female 10:37 AM EDT Gender Identity Choose not to disclose 10:37 AM EDT Sexual Orientation Choose not to disclose 2023 12:33 PM EST Sexual Orientation Asexual 05/25/2023 12 :33 PM EST Sexual Orientation Bisexual 05/25/2023 12 :33 PM EST documented as of this encounter Miscellaneous Notes * Telephone Encounter - Veda Pang RN - 03/11/2024 3:36 PM EST Triage call Pt is autistic and Grandmother is caring for Pt and is right by Pt. Pt has been having pain on left side of face to jaw. Possible earache, no drainage, ear is not blocked. Pt has some swollen glands under jaw left side of face. Pt reports it hurts to swallow. Neg for cough. Neg for fever. Pt is drinking liquids well and eating though reports pain with swallowing. Pt is given tylenol for pain and advil PM at bed time for discomfort. Pt is advised to drink warm liquids, decaff tea with some honey. 1-2 tsp of honey for sore throat. Pt is offered to come to [facility] tonight open till 8pm , no apts available in [facility] today or tomorrow. Grandmother will bring Pt in morning to [facility] , address given [address] [place] [address] [address]. Open 830am - 800pm 03/12/24 also. Grandmother agrees with disposition. home care reviewed. Insurance is verified as active. Protocol Used: Earache (Adult) Protocol-Based Disposition: See in Office or Video Visit Today or Tomorrow Positive Triage Questions: * All other earaches (Exceptions: Brief ear pain lasting < 1 hour, and earache occurring during air travel.) * Patient wants to be seen * All higher-acuity triage questions were negative Care Advice Discussed: * Reassurance and Education - Earache * Pain Medicines * Pain Medicines - Extra Notes and Warnings * Cold or Heat Pack for Ear Pain * Ear Discharge * Reasons To Call Back - Severe pain lasts over 2 hours after pain medicine - You become worse * Telephone Encounter - Rosalina Negrete - 03/11/2024 3:15 PM EST Symptom: Earache Outcome: Schedule an urgent appointment (within 1 hour) or talk to a nurse or provider soon Reason: Severe pain now The caller accepted this outcome. documented in this encounter Plan of Treatment Upcoming Encounters Date Type Department Care Team ([facility] st Contact Info) Description 08/28/2024 9:45 AM EDT Office Visit [facility] [address] [place] [address] Hasmukh Merchant MD [address] [place] [address] documented as of this encounter Visit Diagnoses Not on filedocumented in this encounter Care Teams Farm Crops Teacher Relationship Specialty Start Date End Date Hasmukh Merchant MD [address] [place] [address] PCP - General Internal Medicine 10/12/20 documented as of this encounter
--- OUTSIDE RECORDS SUMMARY | 2024-05-30 14:58 | XMS_ITS | Encounter Summary ---
Author Organization [employer] Address [address] [place] [address] Care Team Providers Care Clothing And Textiles Teacher Name Role Phone Hasmukh Merchant MD Primary Care Provider [phone] Encounter Details Date Type Department Care Team (Latest Contact Info) Description 05/30/2024 Travel Social History Tobacco Use Types Packs/Day Years Used Date Smoking Tobacco: Never Depression Answer Date Recorded Patient Health Questionnaire-9 Score 22 05/30/2024 Patient Health Questionnaire-9 Score 22 05/30/2024 Last PHQ-9: Questionnaire Data Not on file 0 05/30/2024 Housing Stability Answer Date Recorded What is your housing situation today? I have [place] [facility]mahon 05/30/[address] you li ve. Do you have problems with any of the following? None of the above 05/30/2024 Food Insecurity Answer Date Recorded Within the past 12 months, y ou worried that your food would run out before you got money to buy more: Never True 05/30/2024 Within the past 12 months,th e food you bought just didn't last and you didn't have enough money to get more: Never True Utilities Answer Date Recorded In the past 12 months, has t he electric, gas, oil or water company threatened to shut off services in your home? No 05/30/2024 Depression Answer Date Recorded Patient Health Questionnaire-2 Score 6 05/30/2024 Internet Access Answer Date Recorded Internet Access Q1 Yes 05/30/2024 Internet Access Q2 Not on file 05/30/2024 Comments Unknown Sex and Gender Information Value Date Recorded Sex Assigned at Female 02/28/2022 10:37 AM EDT Legal Sex Female 10:37 AM EDT Gender Identity Choose not to disclose 10:37 AM EDT Sexual Orientation Choose not to disclose 2023 12:33 PM EST Sexual Orientation Asexual 05/25/2023 12 :33 PM EST Sexual Orientation Bisexual 05/25/2023 12 :33 PM EST documented as of this encounter Plan of Treatment Upcoming Encounters Date Type Department Care Team ([facility] st Contact Info) Description 08/28/2024 9:45 AM EDT Office Visit [facility] MED & PEDS [address] [place] [address] Hasmukh Merchant MD [address] [place] [address] documented as of this encounter Visit Diagnoses Not on filedocumented in this encounter Additional Health Concerns Assessment Noted Time PHQ-9 Depression Total Score: 22 025 11:24 AM EST documented as of this encounter Care Teams Clothing And Textiles Teacher Relationship Specialty Start Date End Date Hasmukh Merchant MD [address] [place] [address] PCP - General Internal Medicine 10/12/20 documented as of this encounter
--- OUTSIDE RECORDS SUMMARY | 2024-05-30 14:58 | XMS_ITS | Encounter Summary ---
Author Organization [employer] Address [address] [facility] 7 [place] [address] Care Team Providers Care Emergency Veterinary Assistant Name Role Phone Hasmukh Merchant MD Primary Care Provider [phone] Reason for Referral * Consultation (Routine) - Authorized Specialty Diagnoses / Procedures Referred By Harris zee Referred To Contact Pharmacy Diagnoses Type 2 diabetes mellitus with hyperglycemia, without long-term current use of insulin ([facility]) Hasmukh Merchant MD [address] [place] [address] Phone: tel: fax: Referral ID Status Reason Start Date Expiration Date Visits Requested Visits Authorized [id number] Authorized Consult and Treat 05/30/2024 05/30/2025 6 6 * Consultation (Routine) - Pending Review Specialty Diagnoses / Procedures Referred By Harris zee Referred To Contact Podiatry Diagnoses Nail disorder (onychogryphosis) Hasmukh Merchant MD [address] [place] [address] Phone: tel: fax: Referral ID Status Reason Start Date Expiration Date Visits Requested Visits Authorized [id number] Pending Review Specialty Services Required 05/30/2024 05/30/2025 1 1 * Consultation (Routine) - Authorized Specialty Diagnoses / Procedures Referred By Contac t Referred To Contact Optometry Diagnoses Type 2 diabetes mellitus with hyperglycemia, without long-term current use of insulin (CMS/HCC) Hasmukh Merchant MD [address] [place] [address] Phone: tel: fax: [facility] OPTOMETRY [address] [place] [address] Phone: tel: fax: Referral ID Status Reason Start Date Expiration Date Visits Requested Visits Authorized [id number] Authorized Consult and Treat 05/30/2024 05/30/2025 1 1 Reason for Visit * Reason Comments Diabetes Encounter Details Date Type Department Care Team (Late st Contact Info) Description 05/30/2024 10:30 AM EST Office Visit [facility] [address] [place] [phone] Hasmukh Merchant MD [address] [place] [phone] Type 2 diabetes mellitus with hyperglycemia, without long-term current use of insulin (CMS/HCC) (Primary Dx); Type 2 diabetes mellitus with hyperglycemia, without long-term current use of insulin (CMS/HCC); Nail disorder (onychogryphosis); Vitamin D deficiency; Dietary counseling; Exercise counseling; Class 2 severe obesity due to excess calories with serious comorbidity and body mass index (BMI) of 36.0 to 36.9 in adult (CMS/HCC); Speech delay; Reactive depression Social History Tobacco Use Types Packs/Day Years [...] PM EST documented as of this encounter Last Filed Vital Signs Vital Sign Reading Time Taken Comments Blood Pressure 128/80 05/30/2024 10:35 AM EST Pulse 84 05/30/2024 10:35 AM EST Temperature 36.6 ??C (97.8 ??F) 05/30/2024 1 0:35 AM EST Respiratory Rate 20 05/30/2024 10:3 5 AM EST Oxygen Saturation 98% 05/30/2024 10: 35 AM EST Inhaled Oxygen Concentration - - Weight 99.7 kg (219 lb 12.8 oz) 025 10:35 AM EST Height 165.1 cm (5' 5 ) 05/30/2024 10:3 5 AM EST Body Mass Index 36.58 05/30/2024 10:35 AM EST documented in this encounter Progress Notes * Hasmukh Merchant MD - 05/30/2024 10:30 AM EST Subjective Patient ID: Pina Ramos is a 24 y.o. adult who presents for No chief complaint on file.. Diabetes Pina presents for Pina's follow-up diabetic visit. Pina has type 2 diabetes mellitus. Pertinent negatives for diabetes include no blurred vision, no chest pain, no fatigue, no foot paresthesias, no foot ulcerations, no polydipsia, no polyphagia, no polyuria, no visual change, no weakness and no weight loss. No reported acute events since the last office visit. Patient is a noncompliant to medication for unclear reason. Would like to get a referral to podiatry and ophthalmology. Came to the appointment with Mrs. Gonzalez the grandmother. Patient Active Problem List Diagnosis Asthma Diabetes mellitus ([facility]) H/O: attempted suicide Depression Speech delay Current Outpatient Medications on File Prior to Visit Medication Sig Dispense Refill albuterol 108 (90 Base) MCG/ACT inhaler Inhale 2 puffs every 4 (four) hours if needed for wheezing.18 g 0 metFORMIN (Glucophage) 500 MG tablet TAKE 1 TABLET BY MOUTH TWICE DAILY WITH MORNING AND EVENING MEALS 180 tablet 1 [DISCONTINUED] cholecalciferol (Vitamin D-3) 50 MCG (1999 UT) capsule Take 1 capsule (50 mcg) by mouth in the morning. 90 capsule 3 [DISCONTINUED] empagliflozin (Jardiance) 10 MG Take 1 tablet (10 mg) by mouth Once per day. 30 tablet 11 No current facility-administered medications on file prior to visit. Allergies Allergen Reactions Seasonal Ic [Octacosanol] Review of Systems Constitutional: Negative for activity change, appetite change, chills, fatigue and weight loss. HENT: Positive for ear discharge. Eyes: Negative for blurred vision, pain and itching. Cardiovascular: Negative for chest pain. Endocrine: Negative for polydipsia, polyphagia and polyuria. Musculoskeletal: Negative for arthralgias, back pain, gait problem and joint swelling. Neurological: Negative for weakness. Objective BP 128/80 (BP Location: Right arm, Patient Position: Sitting, BP Cuff Size: Large adult) Pulse 84 Temp 97.8 ??F (36.6 ??C) (Oral) Resp 20 Ht 5' 5 (1.651 m) Wt 219 lb 12.8 oz (99.7 kg) SpO2 98% BMI 36.58 kg/m?? Physical Exam Constitutional: General: Pina is not in acute distress. Appearance: Normal appearance. Pina is obese. Pina is not ill-appearing or diaphoretic. Cardiovascular: Rate and Rhythm: Normal rate. Pulmonary: Effort: Pulmonary effort is normal. Neurological: General: No focal deficit present. Mental Status: Pina is alert. Psychiatric: Mood and Affect: Affect is flat. Speech: Speech is delayed. Assessment/Plan Diagnoses and all orders for this visit: Type 2 diabetes mellitus with hyperglycemia, without long-term current use of insulin ([facility]) Comments: Uncontrolled Start Jardiance 10 mg Follow-up in 3 months Orders: - POCT Glucose - POCT HGB A1C - empagliflozin (Jardiance) 10 MG; Take 1 tablet (10 mg) by mouth Once per day. - Referral to [facility]; Future - CBC auto differential; Future - Comprehensive Metabolic Panel; Future - Lipid Panel, Standard; Future - TSH W/Reflex to FT4; Future - Referral to Pharmacy [facility] Type 2 diabetes mellitus with hyperglycemia, without long-term current use of insulin ([facility]) Comments: uncontrolled Does not tolerate Metformin. jardiance will be started. Orders: - POCT Glucose - POCT HGB A1C - empagliflozin (Jardiance) 10 MG; Take 1 tablet (10 mg) by mouth Once per day. - Referral to [facility]; Future - CBC auto differential; Future - Comprehensive Metabolic Panel; Future - Lipid Panel, Standard; Future - TSH W/Reflex to FT4; Future - Referral to Pharmacy [facility] Nail disorder (onychogryphosis) - Referral to Podiatry; Future Vitamin D deficiency Comments: Continue with vitamin D supplementation. Orders: - cholecalciferol (Vitamin D-3) 50 MCG (2000 UT) capsule; Take 1 capsule (50 mcg) by mouth Once per day. Dietary counseling Exercise counseling Class 2 severe obesity due to excess calories with serious comorbidity and body mass index (BMI) of36.0 to 36.9 in adult ([facility]) Discussed calorie deficit, recommended reduction of 20-30% of maintenance calories; fiberglass autobody repairer referral offered. Recommended to decrease soda and sugary beverage consumption. Recommended at least 20 g per meal of protein to assist with satiety. Recommended at least 150 min/week of moderate intensity exercise. Speech delay Patient declines help. Reactive depression Comments: Patient is not interested in getting help from behavioral. Patient and grandmother made aware to contact the office if there is any change. documented in this encounter Plan of Treatment Upcoming Encounters Date Type Department Care Team (Late st Contact Info) Description 08/28/2024 9:45 AM EDT Office Visit [facility] [address] [place] [address] Hasmukh Merchant MD [address] [place] [address] Scheduled Referrals Name Type Priority Associated Diagnoses Orde r Schedule Referral to [facility] Outpatient Referral Routine Type 2 diabetes mellitus with hyperglycemia, without long-term current use of insulin ([facility]) Expected: 05/30/2024 (Approximate), Expires: 05/30/2025 Referral to Podiatry Outpatient Referral Routine Nail disorder (onychogryphosis) Expected: 05/30/2024 (Approximate), Expires: 05/30/2025 Referral to Pharmacy [facility] Outpatient Referral Routine Type 2 diabetes mellitus with hyperglycemia, without long-term current use of insulin (CMS/HCC) Ordered: 05/30/2024 documented as of this encounter Procedures Procedure Name Priority Date/Time Associated Diagnosis Comments POCT GLYCATED HEMOGLOBIN, TOTAL Routine 05/30/2024 11:32 AM EST Type 2 diabetes mellitus with hyperglycemia, without long-term current use of insulin ([facility]) POCT GLUCOSE Routine 05/30/2024 11:30 AM EST Type 2 diabetes mellitus with hyperglycemia, without long-term current use of insulin ([facility]) TSH W/REFLEX TO FT4 Routine 05/30/2024 1 1:06 AM EST Type 2 diabetes mellitus with hyperglycemia, without long-term current use of insulin ([facility]) CBC WITH AUTO DIFFERENTIAL Routine 05/30/2024 11:06 AM EST Type 2 diabetes mellitus with hyperglycemia, without long-term current use of insulin ([facility]) LIPID PANEL, STANDARD Routine 05/30/2024 11:06 AM EST Type 2 diabetes mellitus with hyperglycemia, without long-term current use of insulin ([facility]) COMPREHENSIVE METABOLIC PANEL Routine 05/30/2024 11:06 AM EST Type 2 diabetes mellitus with hyperglycemia, without long-term current use of insulin ([facility]) documented in this encounter Results * (ABNORMAL) POCT HGB A1C (05/30/2024 11:32 AM EST) Hemoglobin A1C 8.3(A) 4.0 - 6.0 % Comment:random [employer] Media Lot # [id number] Lot# Expiration Date 5,519, Blood 05/30/2024 11:3 2 AM EST Hasmukh Merchant MD POINT OF CARE TEST ENTER/ED IT ORDERABLES Final Result * POCT Glucose (05/30/2024 11:30 AM EST) Glucose Blood, POC 193 60 - 200 mg/dL Comment:random QC Media Lot # [id number] Lot# Expiration Date 482,025 Blood Capillary blood specimen / Unknown 05/30/2024 11:30 AM EST Hasmukh Merchant MD POINT OF CARE TEST ENTER/ED IT ORDERABLES Final Result * TSH W/Reflex to FT4 (05/30/2024 11:06 AM EST) TSH reflex Free T4 1.46 0.32 - 4.0 uIU/mL [facility] Blood Venous blood specimen / Unknown 05/30/2024 11:06 AM EST 05/30/2024 2:01 PM EST Hasmukh Merchant MD LAB BLOOD ORDERABLES Final Result [facility] [address] [place] [address] [phone] * (ABNORMAL) Lipid Panel, Standard (05/30/2024 11:06 AM EST) Triglycerides 313(H) <150 mg/dL [facility] Comment:Desirable Triglyceri de: less than 150 mg/dLBorderline High Triglyceride 150-199 mg/dLHigh Triglyceride: 200-499 mg/dLVery High Triglyceride: greater than or equal to 5OO mg/dL Cholesterol 217(H) <200 mg/dL [facility] Comment:Desirable Cholestero l: less than 200 mg/dLBorderline High Cholesterol: 200-239 mg/dLHigh Cholesterol: greater than 239 mg/dL LDL Cholesterol Calculated 112(H) <100 mg/dL [facility] Comment:Desirable LDL: less than 100 mg/dLNear Optimal/Above Optimal LDL: 110- 129 mg/dLBorderline High LDL: 130-159 mg/dLHigh LDL: 160-189 mg/dLVery High LDL: greater than or equal to 190 mg/dL HDL Cholesterol 43 >40 mg/dL [facility] Comment:Desirable HDL: great er than 40 mg/dL Note: This HDL assay may give artificially low results in patients with liver disease. Blood Venous blood specimen / Unknown 05/30/2024 11:06 AM EST 05/30/2024 2:01 PM EST us Hasmukh Merchant MD LAB BLOOD ORDERABLES Final Result [facility] [address] [place] [address] [phone] * (ABNORMAL) Comprehensive Metabolic Panel (05/30/2024 11:06 AM EST) Sodium 138 135 - 145 mmol/L [facility] Potassium 4.1 3.3 - 5.1 mmol/L [facility] Chloride 103 96 - 108 mmol/L [facility] Carbon Dioxide 27 22 - 29 mmol/L [facility] Anion Gap 12 12 - 20 [facility] Urea Nitrogen (BUN) 7(L) 9 - 16 mg/dL [facility] Creatinine, Serum 0.56 0.5 - 1.4 mg/dL [facility] Estimated Glomerular Filt Rate >60 [facility] Comment:Chronic Kidney Disea se: Estimated GFR < 60 mL/min/1.63x7Equvdp Kidney Disease: Estimated GFR < 15 mL/min/1.73m2 Glucose 173(H) 60 - 115 mg/dL [facility] Calcium 9.8 8.4 - 10.2 mg/dL [facility] Bilirubin, Total 0.3 0.0 - 1.0 mg/dL [facility] Aspartate Amino Transferase 25 5 - 31 U/L [facility] Alanine Aminotransferase 22 0 - 31 U/L [facility] Total Protein 8.3(H) 6.5 - 8.0 g/dL [facility] Albumin Level 4.1 3.5 - 5.0 g/dL [facility] Alkaline Phosphatase 88 39 - 117 U/L [facility] Blood Venous blood specimen / Unknown 05/30/2024 11:06 AM EST 05/30/2024 2:01 PM EST us Hasmukh Merchant MD LAB BLOOD ORDERABLES Final Result [facility] [address] [place] [phone] * (ABNORMAL) CBC auto differential (05/30/2024 11:06 AM EST) White Blood Count 14.7(H) 4.8 - 10.8 X10*3/uL [facility] Red Blood Count 4.68 4.20 - 5.50 X10*6/uL [facility] Hemoglobin 11.6(L) 12.0 - 16.0 g/dl [facility] Hematocrit 37.9 37.0 - 47.0 % [facility] Mean Corpuscular Volume 81.0 80.0 - 98.0 fL [facility] Mean Corpuscular Hemoglobin 24.8(L) 27.0 - 33.0 pg [facility] Mean Corpuscular HGB Conc 30.6(L) 31.0 - 35.0 g/dl [facility] Red Cell Distribution Width 13.9 11.0 - 16.0 % [facility] Platelet Count 540(H) 160 - 400 X10*3/uL [facility] Mean Platelet Volume 10.6 9.4 - 12.3 fL [facility] Neutrophils Percent Auto 74.2(H) 45 - 73 % [facility] Imm Gran Pct Auto 0.4 0.0 - 0.4 % [facility] Lymphocytes Percent Auto 19.3(L) 20 - 40 % [facility] Monocytes Percent Auto 5.0 2 - 11 % [facility] Eosinophils Percent Auto 0.7 0 - 4 % [facility] Basophils Percent Auto 0.4 0 - 2 % [facility] NRBC Pct Auto 0.0 0.0 - 0.2 /100WBC [facility] Neutrophils Absolute Auto 10.9(H) 2.0 - 8.3 x10*3/uL [facility] Imm Gran Abs Auto 0.06(H) 0.00 - 0.03 X10*3/uL [facility] Lymphocytes Absolute Auto 2.8 1.2 - 4.9 X10*3/uL [facility] Monocytes Absolute Auto 0.7 0.1 - 1.2 X10*3/uL [facility] Eosinophils Absolute Auto 0.1 0.0 - 0.4 X10*3/uL [facility] Basophils Absolute Auto 0.1 0.0 - 0.2 X10*3/uL [facility] NRBC Abs Auto 0.000 0.0 - 0.012 X10*3/uL [facility] Blood Venous blood specimen / Unknown 05/30/2024 11:06 AM EST 05/30/2024 1:58 PM EST Hasmukh Merchant MD LAB BLOOD ORDERABLES Final Result [facility] [address] [place] [phone] documented in this encounter Visit Diagnoses Diagnosis Type 2 diabetes mellitus with hyperglycemia, without long-term current use of insulin ([facility])- Primary Nail disorder (onychogryphosis) Other specified disease of nail Vitamin D deficiency Dietary counseling Dietary surveillance and counseling Exercise counseling Class 2 severe obesity due to excess calories with serious comorbidity and body mass index (BMI) of 36.0 to 36.9 in adult ([facility]) Speech delay Expressive language disorder Reactive depression documented in this encounter Additional Health Concerns Assessment Noted Time PHQ-9 Depression Total Score: 22 025 11:24 AM EST documented as of this encounter Care Teams Emergency Veterinary Assistant Relationship Specialty Start Date End Date Hasmukh Merchant MD [address] [place] [phone] PCP - General Internal Medicine 10/12/20 documented as of this encounter
--- OUTSIDE RECORDS SUMMARY | 2024-05-30 14:58 | XMS_ITS | Encounter Summary ---
Author Organization [employer] Address [address] [facility] [address] [place] [address] Care Team Providers Care Labor Union Business Representative Name Role Phone Hasmukh Merchant MD Primary Care Provider Encounter Details Date Type Department Care Team (Late st Contact Info) Description 07/11/2023 Orders Only [facility] [address] [place], [place] [phone] Hasmukh Merchant MD [address] [place], [place] [phone] Vitamin D deficiency (Primary Dx) Social History Tobacco Use Types Packs/Day Years [...] Description 08/28/2024 9:45 AM EDT Office Visit [facility] [address] [place] [address] Hasmukh Merchant MD [address] [place] [address] documented as of this encounter Visit Diagnoses Diagnosis Vitamin D deficiency- Primary documented in this encounter Care Teams [employer] Business Representative Relationship Specialty Start Date End Date Hasmukh Merchant MD [address] [place] [address] PCP - General Internal Medicine 10/12/20 documented as of this encounter
--- OUTSIDE RECORDS SUMMARY | 2024-05-30 14:58 | XMS_ITS | Encounter Summary ---
Author Organization [employer] Address [address] [facility] [address] [place] [address] Care Team Providers Care Military Science Teacher Name Role Phone Hasmukh Merchant MD Primary Care Provider [phone] Reason for Visit * Reason Onset Date Comments Med Refill 07/11/2023 Medication Question 07/11/2023 Encounter Details Date Type Department Care Team ([facility] Contact Info) Description 07/11/2023 Telephone [facility] [address] [place], [place] [phone] Hasmukh Merchant MD [address] [place], [place] [phone] Med Refill; Medication Question Social History Tobacco Use Types Packs/Day Years [...] encounter Miscellaneous Notes * Telephone Encounter - Wing Vamsi RN - 07/12/2023 10:24 AM EDT Tc to pt/s mother, informed what Dr. Merchant stated regarding prescription. Mother stated pt has not taken any medication in over a year and would call back to schedule an appt. * Telephone Encounter - Benigno Williamson RN - 07/11/2023 12:44 PM EDT Please see message below. Thanks. * Telephone Encounter - Nani Martinez - 07/11/2023 12:16 PM EDT Tc from [place] [facility] requesting a 90 day suppy for medication ergocalciferol (Vitamin D2) 1.25 MG (22326 UT) capsule due to insurance Please sent to [facility] [address] [place] [address] (Pharmacy) Pt has not meds documented in this encounter Plan of Treatment Upcoming Encounters Date Type Department Care Team (Late st Contact Info) Description 08/28/2024 9:45 AM EDT Office Visit [facility] [address] [place] [address] Hasmukh Merchant MD [address] [place] [address] documented as of this encounter Visit Diagnoses Not on filedocumented in this encounter Care Teams Military Science Teacher Relationship Specialty Start Date End Date Hasmukh Merchant MD [address] [place] [address] PCP - General Internal Medicine 10/12/20 documented as of this encounter
--- OUTSIDE RECORDS SUMMARY | 2024-05-30 14:58 | XMS_ITS | Encounter Summary ---
Author Organization [employer] Address [address] [facility] [address] [place] [address] Care Team Providers Care Youth Court Judge Name Role Phone Hasmukh Merchant MD Primary Care Provider [phone] Reason for Visit * Reason Onset Date Comments Med Refill 05/04/2022 Encounter Details Date Type Department Care Team (Late st Contact Info) Description 05/04/2022 Telephone [facility] [address] [place] [address] Hasmukh Merchant MD [address] [place], [place] [phone] Med Refill Social History Tobacco Use Types Packs/Day Years Used Date Smoking Tobacco: Never Assessed Comments Unknown Sex and Gender Information Value [...] encounter Miscellaneous Notes * Telephone Encounter - Ronnell Pimentel - 05/04/2022 2:33 PM EST Tc from [facility] with [facility] requesting med refill Ferosul 325 mg documented in this encounter Plan of Treatment Upcoming Encounters Date Type Department Care Team (Late st Contact Info) Description 08/28/2024 9:45 AM EDT Office Visit [facility] PEDS [address] [place] [address] Hasmukh Merchant MD [address] [place] [address] documented as of this encounter Visit Diagnoses Not on filedocumented in this encounter Care Teams Youth Court Judge Relationship Specialty Start Date End Date Hasmukh Merchant MD [address] [place] [address] PCP - General Internal Medicine 10/12/20 documented as of this encounter
--- OUTSIDE RECORDS SUMMARY | 2024-05-30 14:58 | XMS_ITS | Clinical Summary ---
Author Organization [employer] Address [address] [facility] 7 [place] [address] Care Team Providers Care Catalog Library Assistant Name Role Phone Hasmukh Merchant MD Primary Care Provider [phone] Allergies Active Allergy Reactions Criticality Noted Date Comments Octacosanol 10/21/2015 Medications albuterol 108 (90 Base) MCG/ACT inhalerIndicatio ns:Mild intermittent asthma, unspecified whether complicated Inhale 2 puffs every 4 (four) hours if needed for wheezing. 18 g 12/16/19 23 Active metFORMIN (Glucophage) 500 MG tabletIndication s:Type 2 diabetes mellitus without complication, without long-term current use of insulin ([facility]) TAKE 1 TABLET BY MOUTH TWICE DAILY WITH MORNING AND EVENING MEALS 180 tablet 1 04/18/20 24 Active empagliflozin (Jardiance) 10 MGIndications:Ty pe 2 diabetes mellitus with hyperglycemia, without long-term current use of insulin (CMS/HCC),Type 2 diabetes mellitus with hyperglycemia, without long-term current use of insulin (CMS/HCC) Take 1 tablet (10 mg) by mouth Once per day. 30 tablet 11 05/30/19 25 026 Active cholecalciferol (Vitamin D-3) 50 MCG (1999) capsuleIndicatio ns:Vitamin D deficiency Take 1 capsule (50 mcg) by mouth Once per day. 90 capsule 3 05/30/19 25 Active cholecalciferol (Vitamin D-3) 50 MCG (1999 UT) capsuleIndicatio ns:Vitamin D deficiency Take 1 capsule (50 mcg) by mouth in the morning. 90 capsule 3 07/11/19 24 025 Discontinued(Re order (will not trigger notification to Pharmacy)) empagliflozin (Jardiance) 10 MGIndications:Ty pe 2 diabetes mellitus with hyperglycemia, without long-term current use of insulin ([facility]) Take 1 tablet (10 mg) by mouth Once per day. 30 tablet 11 01/31/20 24 025 Discontinued(Re order (will not trigger notification to Pharmacy)) Active Problems Problem Noted Date Diagnosed Date Speech delay 05/25/2023 Asthma 12/15/2022 H/O: attempted suicide 04/19/2021 Diabetes mellitus 09/10/2020 Depression 10/01/2014 Encounters Date Type Department Care Team Description 05/30/2024 10:30 AM EST Office Visit [facility] [address] [place] [address] Hasmukh Merchant MD Type 2 diabetes mellitus with hyperglycemia, without long-term current use of insulin ([facility]) (Primary Dx); Type 2 diabetes mellitus with hyperglycemia, without long-term current use of insulin ([facility]); Nail disorder (onychogryphosis); Vitamin D deficiency; Dietary counseling; Exercise counseling; Class 2 severe obesity due to excess calories with serious comorbidity and body mass index (BMI) of 36.0 to 36.9 in adult ([facility]); Speech delay; Reactive depression 05/30/2024 Travel 05/29/2024 Telephone [facility] [address] [place] [address] Hasmukh Merchant MD CHART PREP 04/18/2024 Refill [facility] [address] [place] [address] Hasmukh Merchant MD Type 2 diabetes mellitus without complication, without long-term current use of insulin ([facility]) 03/11/2024 Telephone [facility] [address] [place] [phone] Hasmukh Merchant MD Nurse Triage from Last 3 Months Immunizations Name Administration Dates Next Due Influenza, seasonal, injectable, preservative fr ee 2024 Pfizer Covid-19 Vaccine 12+ 2024 Social History Tobacco Use Types Packs/Day Years Used Date Smoking Tobacco: Never Tobacco Cessation:Counseling Given: No Depression Answer Date Recorded Patient Health Questionnaire-9 Score 22 05/30/2024 Patient Health Questionnaire-9 Score 22 05/30/2024 Last PHQ-9: Questionnaire Data Not on file 0 05/30/2024 Housing Stability Answer Date Recorded What is your housing situation today? I have [place] sing 05/30/[address] you li [...] Orientation Bisexual 05/25/2023 12 :33 PM EST Last Filed Vital Signs Vital Sign Reading [...] Mass Index 36.58 05/30/2024 10:35 AM EST Plan of Treatment Upcoming Encounters Date Type Department Care Team (Late st Contact Info) Description 08/28/2024 9:45 AM EDT Office Visit [facility] [address] [place], [place] [phone] Hasmukh Merchant MD [address] [place] [address] Health Maintenance Due Date Last Done Comments HIV Screening 2000 SDOH Screening 2000 Diabetes: Foot Exam 01/30/2010 Eye Exam 01/30/2010 Family Planning (PISQ) 01/30/2015 Hepatitis C Screening 01/30/2018 Diabetes: Urine Protein Screening 01/30/2019 Pneumococcal Vaccine: Pediatrics (0 to 5 Years) and At-Risk Patients (6 to 49) Years) (1 of 2 - PCV) 01/30/2019 Pap Smear 01/30/2021 Lipid Panel 12/16/2023 05/30/2024, 11/29, 10/21/2020 Diabetes: Hemoglobin A1C 08/28/2024 025, 2024, 12/15/2022, Additional history exists Depression Monitoring (PHQ-9) 11/27/2024 05/30/2024, 05/30/2024 Alcohol/Substance Use Screening 05/30/2025 05/30/2024 Depression Screening 05/30/2025 05/30/2024, 05/30/19 Tobacco Screening 05/30/2025 05/30/2024 DTaP/Tdap/Td Vaccines (8 - Td or Tdap) 07/25/2031 07/24/2021, 05/25/2012, 12/02/2004, Additional history exists Zoster Vaccines (1 of 2) 01/30/2050 RSV Patients and Patients Aged 60 years or older (1 - 1-dose 75+ series) 01/30/2075 Hepatitis B Vaccines Completed 2000, 2000, 2000 HIB Vaccines Completed 05/23/2001, 05/02, 2000, Additional history exists IPV Vaccines Completed 12/02/2004, 10/2001, 05/23/2001, Additional history exists HPV Vaccines Completed 04/06/2015, 06/2014, 10/01/2014 Meningococcal Vaccine Completed 05/24/2017, 013 Hepatitis A Vaccines Completed 12/05/2019, 05/25/19 13 COVID-19 Vaccine Completed 2024, 06/2020, 10/03/2020 Influenza Vaccine Completed 2024, , 05/24/2017, Additional history exists RSV under 20 months Aged Out No longe r eligible based on patient's age to complete this topic Rotavirus Vaccines Aged Out No longer eligible based on patient's age to complete this topic Procedures Procedure Name Priority Date/Time Associated Diagnosis Comments POCT GLYCATED HEMOGLOBIN, TOTAL Routine 05/30/2024 11:32 AM EST Type 2 diabetes mellitus with hyperglycemia, without long-term current use of insulin (CMS/HCC) POCT GLUCOSE Routine 05/30/2024 11:30 AM EST Type 2 diabetes mellitus with hyperglycemia, without long-term current use of insulin (CMS/HCC) TSH W/REFLEX TO FT4 Routine 05/30/2024 1 1:06 AM EST Type 2 diabetes mellitus with hyperglycemia, without long-term current use of insulin (CMS/HCC) LIPID PANEL, STANDARD Routine 05/30/2024 11:06 AM EST Type 2 diabetes mellitus with hyperglycemia, without long-term current use of insulin (CMS/HCC) COMPREHENSIVE METABOLIC PANEL Routine 05/30/2024 11:06 AM EST Type 2 diabetes mellitus with hyperglycemia, without long-term current use of insulin (CMS/HCC) CBC WITH AUTO DIFFERENTIAL Routine 05/30/2024 11:06 AM EST Type 2 diabetes mellitus with hyperglycemia, without long-term current use of insulin ([facility]) from Last 3 Months Results * (ABNORMAL) POCT HGB A1C (05/30/2024 11:32 AM EST) Hemoglobin A1C 8.3(A) 4.0 - 6.0 % Comment:[employer] Lot # [id number] Lot# Expiration Date [id number] Blood 05/30/2024 11:3 2 AM EST Hasmukh Merchant MD POINT OF CARE TEST ENTER/ED IT ORDERABLES Final Result * POCT Glucose (05/30/2024 11:30 AM EST) Glucose Blood, POC 193 60 - 200 mg/dL Comment:[employer] Lot # [id number] Lot# Expiration Date 482, Blood Capillary blood specimen / Unknown 05/30/2024 11:30 AM EST Hasmukh Merchant MD POINT OF CARE TEST ENTER/ED IT ORDERABLES Final Result * TSH W/Reflex to FT4 (05/30/2024 11:06 AM EST) TSH reflex Free T4 1.46 0.32 - 4.0 uIU/mL [facility] Blood Venous blood specimen / Unknown 05/30/2024 11:06 AM EST 05/30/2024 2:01 PM EST Hasmukh Merchant MD LAB BLOOD ORDERABLES Final Result [facility] [address] [place] [phone] * (ABNORMAL) CBC auto differential (05/30/2024 11:06 AM EST) White Blood Count 14.7(H) 4.8 - 10.8 X10*3/uL [facility] Red Blood Count 4.68 4.20 - 5.50 X10*6/uL [facility] Hemoglobin 11.6(L) 12.0 - 16.0 g/dl [facility] Hematocrit 37.9 37.0 - 47.0 % [facility] Mean Corpuscular Volume 81.0 80.0 - 98.0 fL [facility] Mean Corpuscular Hemoglobin 24.8(L) 27.0 - 33.0 pg [facility] Mean Corpuscular HGB Conc 30.6(L) 31.0 - 35.0 g/dl [facility] Red Cell Distribution Width 13.9 11.0 - 16.0 % [facility] Platelet Count 540(H) 160 - 400 X10*3/uL [facility] Mean Platelet Volume 10.6 9.4 - 12.3 fL [facility] Neutrophils Percent Auto 74.2(H) 45 - 73 % [facility] Imm Gran Pct Auto 0.4 0.0 - 0.4 % [facility] Lymphocytes Percent Auto 19.3(L) 20 - 40 % [facility] Monocytes Percent Auto 5.0 2 - 11 % [facility] Eosinophils Percent Auto 0.7 0 - 4 % [facility] Basophils Percent Auto 0.4 0 - 2 % [facility] NRBC Pct Auto 0.0 0.0 - 0.2 /100WBC [facility] Neutrophils Absolute Auto 10.9(H) 2.0 - 8.3 x10*3/uL [facility] Imm Gran Abs Auto 0.06(H) 0.00 - 0.03 X10*3/uL [facility] Lymphocytes Absolute Auto 2.8 1.2 - 4.9 X10*3/uL [facility] Monocytes Absolute Auto 0.7 0.1 - 1.2 X10*3/uL [facility] Eosinophils Absolute Auto 0.1 0.0 - 0.4 X10*3/uL [facility] Basophils Absolute Auto 0.1 0.0 - 0.2 X10*3/uL [facility] NRBC Abs Auto 0.000 0.0 - 0.012 X10*3/uL [facility] Blood Venous blood specimen / Unknown 05/30/2024 11:06 AM EST 05/30/2024 1:58 PM EST us Hasmukh Merchant MD LAB BLOOD ORDERABLES Final Result Performing Organization Address City/[facility] Co de Phone Number [facility] [address] [place], [place] [phone] * (ABNORMAL) Lipid Panel, Standard (05/30/2024 11:06 AM EST) Triglycerides 313(H) <150 mg/dL [facility] Comment:Desirable Triglyceri de: less than 150 mg/dLBorderline High Triglyceride 150-199 mg/dLHigh Triglyceride: 200-499 mg/dLVery High Triglyceride: greater than or equal to 5OO mg/dL Cholesterol 217(H) <200 mg/dL [facility] Comment:Desirable Cholestero l: less than 200 mg/dLBorderline High Cholesterol: 200-239 mg/dLHigh Cholesterol: greater than 239 mg/dL LDL Cholesterol Calculated 112(H) <100 mg/dL [facility] Comment:Desirable LDL: less than 100 mg/dLNear Optimal/Above Optimal LDL: 110- 129 mg/dLBorderline High LDL: 130-159 mg/dLHigh LDL: 160-189 mg/dLVery High LDL: greater than or equal to 190 mg/dL HDL Cholesterol 43 >40 mg/dL [facility] Comment:Desirable HDL: great er than 40 mg/dL Note: This HDL assay may give artificially low results in patients with liver disease. Blood Venous blood specimen / Unknown 05/30/2024 11:06 AM EST 05/30/2024 2:01 PM EST us Hasmukh Merchant MD LAB BLOOD ORDERABLES Final Result [facility] [address] [place] [phone] * (ABNORMAL) Comprehensive Metabolic Panel (05/30/2024 11:06 AM EST) Sodium 138 135 - 145 mmol/L [facility] Potassium 4.1 3.3 - 5.1 mmol/L [facility] Chloride 103 96 - 108 mmol/L [facility] Carbon Dioxide 27 22 - 29 mmol/L [facility] Anion Gap 12 12 - 20 [facility] Urea Nitrogen (BUN) 7(L) 9 - 16 mg/dL [facility] Creatinine, Serum 0.56 0.5 - 1.4 mg/dL [facility] Estimated Glomerular Filt Rate >60 [facility] Comment:Chronic Kidney Disea se: Estimated GFR < 60 mL/min/1.50r6Snknpn Kidney Disease: Estimated GFR < 15 mL/min/1.73m2 Glucose 173(H) 60 - 115 mg/dL [facility] Calcium 9.8 8.4 - 10.2 mg/dL [facility] Bilirubin, Total 0.3 0.0 - 1.0 mg/dL [facility] Aspartate Amino Transferase 25 5 - 31 U/L [facility] Alanine Aminotransferase 22 0 - 31 U/L [facility] Total Protein 8.3(H) 6.5 - 8.0 g/dL [facility] Albumin Level 4.1 3.5 - 5.0 g/dL [facility] Alkaline Phosphatase 88 39 - 117 U/L [facility] Blood Venous blood specimen / Unknown 05/30/2024 11:06 AM EST 05/30/2024 2:01 PM EST us Hasmukh Merchant MD LAB BLOOD ORDERABLES Final Result Performing Organization Address [facility]/ZIP Co de Phone Number [facility] [address] [place] [address] [phone] from Last [address] [address] [place] [address] C3 Care Teams Catalog Library Assistant Relationship Specialty Start Date End Date Hasmukh Merchant MD [address] [place] [phone] PCP - General Internal Medicine 10/12/20
--- OUTSIDE RECORDS SUMMARY | 2024-05-30 14:58 | XMS_ITS | Encounter Summary ---
Author Organization [employer] Address [address] [facility] 7 [place] [address] Care Team Providers Care Processing Inspector Name Role Phone Hasmukh Merchant MD Primary Care Provider [phone]- [phone] Reason for Visit * Reason Onset Date Comments CHART PREP 05/29/2024 Encounter Details Date Type Department Care Team ([facility] st Contact Info) Description 05/29/2024 Telephone [facility] [address] [place], [place] [phone] Hasmukh Merchant MD [address] [place], [place] [phone] CHART PREP Social History Tobacco Use Types Packs/Day Years [...] encounter Miscellaneous Notes * Telephone Encounter - Luly Mcnally [place] - 05/29/2024 11:08 AM EST Chart Prep Labs: not done Images: done Vaccines due: yes Referrals: pending appt Screenings: eye exam , Foot Exam Overdue care gaps: A1C, Glucose, Sbirt, SDOH, PHQ-9 documented in this encounter Plan of Treatment Upcoming Encounters Date Type Department Care Team (Late st Contact Info) Description 08/28/2024 9:45 AM EDT Office Visit [facility] [address] [place] [address] Hasmukh Merchant MD [address] [place] [address] documented as of this encounter Visit Diagnoses Not on filedocumented in this encounter Care Teams Processing Inspector Relationship Specialty Start Date End Date Hasmukh Merchant MD [address] [place] [address] PCP - General Internal Medicine 10/12/20 documented as of this encounter
--- OUTSIDE RECORDS SUMMARY | 2024-05-30 14:58 | XMS_ITS | Encounter Summary ---
Author Organization [employer] Address [address] [facility] [address] [place] [address] Care Team Providers Care Sheet Metal Layout Worker Name Role Phone Hasmukh Merchant MD Primary Care Provider [phone]- [phone] Encounter Details Date Type Department Care Team (Late st Contact Info) Description 06/01/2022 Orders Only [facility] [address] [place] [address] Hasmukh Merchant MD [address] [place], [place] [phone] Normocytic anemia (Primary Dx) Social History Tobacco Use Types [...] Description 08/28/2024 9:45 AM EDT Office Visit [facility] [address] [place] [address] Hasmukh Merchant MD [address] [place] [address] Scheduled Orders Name Type Priority Associated Diagnoses Orde r Schedule CBC auto differential Lab Routine Normocytic anemia Expected: 06/01/2022 (Approximate), Expires: 06/01/2023 documented as of this encounter Visit Diagnoses Diagnosis Normocytic anemia- Primary Unspecified anemia documented in this encounter Care Teams Sheet Metal Layout Worker Relationship Specialty Start Date End Date Hasmukh Merchant MD [address] [place] [address] PCP - General Internal Medicine 10/12/20 documented as of this encounter
--- OUTSIDE RECORDS SUMMARY | 2024-05-30 14:58 | XMS_ITS | Encounter Summary ---
Author Organization [facility] [employer] Address [address] [facility] [address] [place] [address] Care Team Providers Care Evp Name Role Phone Hasmukh Merchant MD Primary Care Provider [phone]- [phone] Reason for Visit * Reason Onset Date Comments Appointment Request 05/10/2022 Encounter Details Date Type Department Care Team ([facility] st Contact Info) Description 05/10/2022 Telephone [facility] [address] [place], [place] [phone] Hasmukh Merchant MD [address] [place], [place] [phone] Appointment Request Social History Tobacco Use Types Packs/Day Years [...] encounter Miscellaneous Notes * Telephone Encounter - Brina Wilkins - 05/10/2022 10:06 AM EST Tc from patient requesting to r/s PAP appt from 05/10/[address] Munoz. Details: PAP r/s from 02/23/22 documented in this encounter Plan of Treatment Upcoming Encounters Date Type Department Care Team (Late st Contact Info) Description 08/28/2024 9:45 AM EDT Office Visit [facility] [address] [place] [address] Hasmukh Merchant MD [address] [place] [address] documented as of this encounter Visit Diagnoses Not on filedocumented in this encounter Care Teams Evp Relationship Specialty Start Date End Date Hasmukh Merchant MD [address] [place] [address] PCP - General Internal Medicine 10/12/20 documented as of this encounter
== END 2024-05-30 11:06 | disposition home or self-care (01) ==
LOC: HO.CHCLDS 11:05
PROVIDERS: Visit Provider Internal Medicine
DX: E11.65 Type 2 diabetes mellitus with hyperglycemia (principal)
CPT/HCPCS: 36415; 80053; 80061; 84443; 85025